=== PATIENT | female | born 1945 | race Caucasian/White ===

== ENCOUNTER 2016-09-06 15:17 | Emergency (ER) | payer MEDICARE, OTHER ==
--- NOTE | ~2016-09-06 | ER ---
PATIENT'S NAME: AMY DELGADO [facility] AGE: 71 Y [address] ROOM: [place] [address] LOCATION: [facility] ADMIT DATE: 09/06/2016 ER/Outpatient Report DISCHARGE DATE: 09/06/2016 FAMILY PHYSICIAN: Nitish Harris MD ATTENDING PHYSICIAN: Emiliano Cox Admission date and time documented on the medical record. I saw the patient at 1520 hours. CHIEF COMPLAINT: Unresponsive state. HISTORY OF PRESENT ILLNESS: This patient is a 71-year-old female who was found unresponsive on the floor. Paramedics were dispatched, they brought the patient into the emergency room by ambulance for evaluation. The patient is an insulin-dependent diabetic type 1. She is on insulin pump. Paramedics found her Accu-Chek was high. She had a similar episode back in the mid May of this year where she was in diabetic ketoacidosis and septic shock. She is following the same scenario with her presentation. She is afebrile with a temperature 96.8, her blood pressure was 96/42, she had a pulse of 82 with a respiratory rate of 24. I did not smell acetone. She was saturating 99% on 6 L of oxygen per nasal cannula. Responded to pain, her Elsie coma Score was 9. We did not intubate the patient. Started her on IV normal saline fluids. Did not have any history other than that was found unresponsive. We know that she is an insulin-dependent diabetic, on insulin pump. HOME MEDICATIONS: See attached medication list. ALLERGIES: ASPIRIN. SOCIAL HISTORY: Nonsmoker, nondrinker. SIGNIFICANT PAST MEDICAL HISTORY: Insulin-dependent diabetes mellitus type 1, on insulin pump; anxiety; depression; diabetic ketoacidosis; dyslipidemia; gastroesophageal reflux; iron deficiency anemia; and chronic kidney disease. OPERATIONS: Breast biopsy. REVIEW OF SYSTEMS: PATIENT'S NAME: AMY DELGADO [facility] AGE: 71 Y [address] ROOM: [place] [address] LOCATION: [facility] ADMIT DATE: 09/06/2016 ER/Outpatient Report DISCHARGE DATE: 09/06/2016 FAMILY PHYSICIAN: Nitish Harris MD ATTENDING PHYSICIAN: Emiliano Cox Unable to obtain from the patient because of her unresponsive state. PHYSICAL EXAMINATION: VITAL SIGNS: Temperature 96.8, tympanic; pulse 82, regular; respirations 24; blood pressure 96/42; and O2 saturation on 6 L of oxygen per nasal cannula is 99%. HEENT: Head: Normocephalic. No abrasion, contusion, laceration, or swelling of the scalp or face. Eyes: Extraocular muscles intact. PERRL. Sclerae and conjunctivae clear, nonicteric. Ears: Clear TMs bilaterally. Nose: Clear. Throat: Clear. Mucous membranes little dry. NECK: No nuchal rigidity. No thyromegaly or cervical adenopathy. No tenderness to palpation. SPINE: Negative. LUNGS: Clear. Good air flow. No rales, rhonchi, or wheezes. HEART: Regular. Pulses are palpable. ABDOMEN: Soft, nondistended, and nontender. No organomegaly or abnormal mass palpable. EXTREMITIES: Intact. NEUROVASCULAR: The patient is unresponsive. Does move all 4 extremities with stimulation. SKIN: Clear. LABORATORY DATA: [place] count was 6[address], 67 segs, 11 bands, 20 lymphocytes, 2 monos; hemoglobin is 8.8; hematocrit 28.2; and platelet count is 228,000. Pro-time is 12.9 with an INR 1.19. CMS was normal except for a low sodium 130, low chloride of 95, low CO2 content of 10, elevated anion gap of 29.9, elevated glucose of 855, low calcium of 7.7, elevated BUN of 54, elevated creatinine of 3.0 with a low GFR of 15. Magnesium was 2.3. Medical blood alcohol was less than 0.01. Acetaminophen and salicylate serum levels were normal. CRP was 3.22. Thyroid tests were normal. Serum acetone was positive 1:4. Arterial pH was low at 7.24, PO2 was 138, and O2 saturation at 99%. Lactate was 5.4. Procalcitonin was 16.41. CPK was 562, CK-MB was 15.6 with an elevated troponin of 0.076. Urine showed 2-5 whites, rare reds, rare epithelial cells, negative bacteria, 2+ amorphous material per high-powered field, negative nitrites. Urine drug screen was negative. We did give the patient Narcan 0.4 mg IV without any results. EKG showed sinus rhythm. No acute ST elevation, ischemic change, or arrhythmia. Chest x-ray showed no acute infiltrate or changes. CT scan of the head showed no intracranial bleed, midline shift, mass effect, or skull fracture. CT scan was read by Radiology, see dictated transcribed report. Blood cultures x2 drawn, results pending. ER COURSE: We did start the patient on IV normal saline, gave her 4 L. We did have to start the patient on IV Levophed, titrated her up to keep her systolic greater PATIENT'S NAME: AMY DELGADO [facility] AGE: 71 Y [address] ROOM: [place], [place] [address] LOCATION: [facility] ADMIT DATE: 09/06/2016 ER/Outpatient Report DISCHARGE DATE: 09/06/2016 FAMILY PHYSICIAN: Nitish Harris MD ATTENDING PHYSICIAN: Emiliano Cox than 100. Started on insulin infusion. Did start the patient on regular insulin infusion at 0.5 units/mm of 0.9% sodium chloride at 3 units/hour plus 10 units IV bolus. Put a Moyer catheter in, kept her oxygen on, and continued hydration. IMPRESSION: 1. Diabetic ketoacidosis with a blood sugar of 855, arterial pH of 7.24, serum acetone 1:4, elevated anion gap of 29.9, and low CO2 content of 10. No evidence of changes on her chest x-ray and urinalysis. She did have an elevated blood count with left shift. Most likely cause is malfunctioning of her insulin pump. 2. Septic shock. 3. Known insulin-dependent diabetes mellitus type 1, on insulin pump. 4. Iron deficiency anemia with a hemoglobin of 8.8, hematocrit of 28.2. 5. Chronic kidney disease with a BUN of 54, creatinine 3.0, estimated GFR of 15. 6. Dyslipidemia. 7. Anxiety and depression. PLAN: I did initially talk with charge nurse here at [facility], and we did not have any ICU beds. I did discuss that with the hospitalist and he thought we will need to transfer the patient since we did not have an ICU bed. I did talk with [facility] who did not have an ICU bed either. I then contacted [facility] in [place], [place], they had an available ICU bed and did accept the patient for transfer. I did speak with the physician there at [facility] who did accept the patient and we did have a bed, so we did transfer the patient by air ambulance. I discussed everything with the family and they understand. Accumulated critical care time, 40 minutes. MD AUSTIN BARR/modl /[id number] d: 09/07/16 0011 t: 09/07/16 0612, OUTPATIENT REPORT
[2016-09-06 15:51] LABS: HEMATOCRIT 28.2 % (33.0-46.0); HEMOGLOBIN 8.8 g/dL (10.0-15.0); MCH 26.2 pg (27.0-34.0); MCHC 31.2 gm/dL (32.0-36.5); MCV 83.9 fl (83.0-98.0); MPV 11.7 fl (9.4-12.4); RBC 3.36 M/uL (3.50-5.50)
[2016-09-06 15:52] LABS: PLATELET COUNT 228 K/uL (150-450); WBC 20.3 K/uL (4.0-11.0)
[2016-09-06 15:57] LABS: PCO2 21 mmHg (35-45); PO2 138 mmHg (80-90)
[2016-09-06 15:58] LABS: INR - (THERAPEUTIC) 1.19 (0.92-1.07); PROTIME 12.5 SECONDS (9.8-11.4)
[2016-09-06 15:58] LABS: LACTATE 5.4 mEq/L (0.50-1.60)
[2016-09-06 16:08] LABS: ALBUMIN 3.1 gm/dL (3.5-5.0); CALCIUM 7.7 mg/dL (8.5-10.5); POTASSIUM 4.9 mMol/L (3.7-5.1); TOTAL PROTEIN 5.5 g/dL (6.0-8.4)
[2016-09-06 16:13] LABS: MAGNESIUM 2.3 mg/dL (1.8-2.6)
[2016-09-06 16:17] LABS: ANION GAP 29.9 (10.0-19.0)
[2016-09-06 16:18] LABS: TOTAL BILIRUBIN 0.9 mg/dL (0.0-1.5)
[2016-09-06 16:35] LABS: ABSOLUTE NEUTROPHIL CT (ANC) 15.8 K/uL (1.8-7.8); BANDED NEUTROPHIL # 2.2 K/uL (0.0-0.1); BANDED NEUTROPHILS % 11 %; LYMPHOCYTE # 4.1 K/uL (0.8-4.0); LYMPHOCYTE % 20 %; MONOCYTE # 0.4 K/uL (0.0-1.0); SEGMENTED NEUTROPHIL # 13.6 K/uL (1.8-7.8); SEGMENTED NEUTROPHIL % 67 %
[2016-09-06 16:49] LABS: BILIRUBIN URINE NEGATIVE (NEGATIVE); BLOOD URINE 50 /UL (NEGATIVE); GLUCOSE URINE 1000 mg/dL (NEGATIVE); KETONE URINE 5 mg/dL (NEGATIVE); LEUKOCYTES URINE 25 /UL (NEGATIVE); NITRITE URINE NEGATIVE (NEGATIVE); PROTEIN URINE 30 mg/dL (NEGATIVE); UROBILINOGEN URINE NORMAL (NORMAL)
[2016-09-06 16:54] LABS: COLOR URINE YELLOW (YELLOW); TURBIDITY URINE 2+ (CLEAR)
[2016-09-06 16:56] LABS: EPITHELIAL URINE RARE #/HPF (NEGATIVE); RBC URINE RARE #/HPF (NEGATIVE)
[2016-09-06 17:04] LABS: AMORPHOUS URINE 2+ (NEGATIVE); BACTERIA URINE NEGATIVE (NEGATIVE)
[2016-09-06 17:05] LABS: AMPHETAMINE NEGATIVE (NEGATIVE); BARBITURATE NEGATIVE (NEGATIVE); COCAINE NEGATIVE (NEGATIVE); OPIATES NEGATIVE (NEGATIVE)
== END 2016-09-06 19:08 | disposition disaster alternative care site (69) ==
LOC: GMED 15:17
PROVIDERS: Emergency Medicine; Nurse Practitioner Family
PROC: 0T9B70Z Drainage of Bladder with Drainage Device, Via Natural or Artificial Opening (ICD-10-PCS; principal; 2016-09-06)
DX: E10.10 Type 1 diabetes mellitus with ketoacidosis without coma (principal); A41.9 Sepsis, unspecified organism; R65.21 Severe sepsis with septic shock; D50.9 Iron deficiency anemia, unspecified; E10.22 Type 1 diabetes mellitus with diabetic chronic kidney disease; N18.9 Chronic kidney disease, unspecified; E78.5 Hyperlipidemia, unspecified; F41.9 Anxiety disorder, unspecified; F32.9 Major depressive disorder, single episode, unspecified; K21.9 Gastro-esophageal reflux disease without esophagitis; Z79.4 Long term (current) use of insulin; Z96.41 Presence of insulin pump (external) (internal); Z88.8 Allergy status to other drugs, medicaments and biological substances
CPT/HCPCS: G0480; J2310; J7030

== ENCOUNTER → 2016-09-06 | Outpatient (CLI) | payer MEDICARE, OTHER ==
[~2016-09-06] MED LIST: "\\\"PREP SPRAY\\\"-TIN4 OZ"; **HUMALOG*100 UNIT/M SUB-Q; CALCIUM-MAGNES1 EAC5 PO; CELEXA20 MG PO; GLUCOSE1 EACH PO; LEVAQUIN 750 M750 MG PO; LEVAQUIN750 MG PO; LEVEMIR FL100 UNIT/1 SUB-Q; LIPITOR20 M1 PO; NOVOLOG100 UNIT/M SUB-Q; ZESTRIL2.5 MG PO
== END | disposition disaster alternative care site (69) ==
LOC: GAMB 14:55
DX: E11.65 Type 2 diabetes mellitus with hyperglycemia (principal); Z79.4 Long term (current) use of insulin
CPT/HCPCS: A0422; A0425; A0427; J7030

== ENCOUNTER → 2016-09-06 | Outpatient (CLI) | payer MEDICARE, OTHER | END | disposition disaster alternative care site (69) | LOC: GAIR 19:32 | DX: E10.10 Type 1 diabetes mellitus with ketoacidosis without coma (principal); K21.9 Gastro-esophageal reflux disease without esophagitis; E78.5 Hyperlipidemia, unspecified; D64.9 Anemia, unspecified; I10 Essential (primary) hypertension; R40.20 Unspecified coma; Z79.4 Long term (current) use of insulin; Z79.899 Other long term (current) drug therapy; Z88.6 Allergy status to analgesic agent | CPT/HCPCS: A0422; A0431; A0436 ==

== ENCOUNTER 2016-10-31 19:22 | Outpatient (CLI) | payer MEDICARE, OTHER | END 2016-10-31 19:31 | disposition disaster alternative care site (69) | LOC: GAMB 19:22 | DX: I46.9 Cardiac arrest, cause unspecified (principal); E11.9 Type 2 diabetes mellitus without complications; Z79.4 Long term (current) use of insulin; Z79.899 Other long term (current) drug therapy | CPT/HCPCS: A0429 ==